=== PATIENT | female | born 1975 | race Hispanic/Latino ===

== ENCOUNTER 2017-10-24 17:47 | Emergency (ER) | payer OTHER ==
[~2017-10-24 17:47] MED LIST: MULT-1203 PO
[2017-10-24 18:39] LABS: BASOPHILS % (AUTO) 0.9 % (0.0-5.0); EOSINOPHILS % (AUTO) 5.4 % (0.0-8.0); LYMPHOCYTES % (AUTO) 36.3 % (21.0-51.0); MEAN CORPUSCULAR HEMOGLOBIN 30.1 pg (27.0-33.0); MEAN CORPUSCULAR HGB CONC 33.8 g/dL (32.0-36.0); MONOCYTES % (AUTO) 6.4 % (3.0-13.0); PLATELET COUNT (AUTO) 197 K/uL (130-400); RED BLOOD CELL COUNT(AUTO) 4.49 MIL/uL (4.00-5.50); RED CELL DISTRIBUTION WIDTH 14.3 % (11.0-15.5); WHITE BLOOD COUNT (AUTO) 6.9 K/uL (4.8-10.8)
[2017-10-24 18:54] LABS: CREATININE 0.7 mg/dL (0.5-1.5); POTASSIUM 3.8 mmol/L (3.5-5.1)
[2017-10-24 18:58] LABS: ALBUMIN 3.2 g/dL (3.5-5.0); BILIRUBIN,TOTAL 0.3 mg/dL (0.2-1.0); TOTAL PROTEIN, SERUM 6.5 g/dL (6.0-8.3)
[2017-10-24 19:07] LABS: B-TYPE NATRIURETIC PEPTIDE < 5 pg/mL (0-100)
[2017-10-24 19:42] LABS: APPEARANCE,URINE Clear (CLEAR); BILIRUBIN,URINE Negative (NEGATIVE); COLOR,URINE Yellow (YELLOW); GLUCOSE, URINE (UA) Negative (NEGATIVE); KETONES,URINE Negative (NEGATIVE); LEUKOCYTE ESTERASE ,URINE Negative (NEGATIVE); NITRATE,URINE Negative (NEGATIVE); OCCULT BLOOD,URINE Negative (NEGATIVE); PH,URINE 6.5 (5.0-8.0); PROTEIN,URINE Negative (NEGATIVE)
[2017-10-24 19:46] LABS: HCG,QUAL RESULT NEGATIVE (NEGATIVE)
== END 2017-10-24 19:57 | disposition home or self-care (01) ==
LOC: EDH 17:47
DX: R60.0 Localized edema (principal); M54.6 Pain in thoracic spine; Z90.710 Acquired absence of both cervix and uterus
CPT/HCPCS: 36415; 71046; 80053; 81003; 81025; 83880; 85025

== ENCOUNTER 2018-05-12 17:31 | Emergency (ER) | payer OTHER ==
[2018-05-12] MEDS ORDERED: LIDOCAINE 5% TOPICAL PATCH TP ONE (18:17)
[2018-05-12] MEDS ORDERED: DIAZEPAM 5 MG TABLET ONE (18:18)
[2018-05-12] MEDS ORDERED: IBUPROFEN 800 MG TAB ONE (18:18)
== END 2018-05-12 20:00 | disposition home or self-care (01) ==
LOC: EDH 17:31
DX: S39.012A Strain of muscle, fascia and tendon of lower back, initial encounter (principal); Z90.710 Acquired absence of both cervix and uterus; Z90.49 Acquired absence of other specified parts of digestive tract; W01.0XXA Fall on same level from slipping, tripping and stumbling without subsequent striking against object, initial encounter; Y93.89 Activity, other specified; Y92.89 Other specified places as the place of occurrence of the external cause; Y99.8 Other external cause status

== ENCOUNTER 2018-12-30 08:26 | Emergency (ER) | payer SELFPAY ==
[2018-12-30] MEDS ORDERED: IBUPROFEN 400 MG TABLET ONE (08:59)
[2018-12-30] MEDS ORDERED: HYDROCODONE/ACETAMINOPHEN 10/325 MG TAB ONE (08:59)
== END 2018-12-30 10:37 | disposition home or self-care (01) ==
LOC: EDH 08:26
DX: S89.82XA Other specified injuries of left lower leg, initial encounter (principal); W18.39XA Other fall on same level, initial encounter; Y93.89 Activity, other specified; Y92.89 Other specified places as the place of occurrence of the external cause; Y99.8 Other external cause status
CPT/HCPCS: 73562

== ENCOUNTER 2020-10-01 20:20 | Inpatient (IN) | payer MEDICAID ==
[~2020-10-01] VITALS: Ht 157.5 cm; Wt 133.8 kg
[2020-10-01 21:04] LABS: BASOPHILS % (AUTO) 0.5 % (0.0-5.0); EOSINOPHILS % (AUTO) 3.8 % (0.0-8.0); HEMATOCRIT 42.6 % (36-48); MEAN CORPUSCULAR HEMOGLOBIN 28.9 pg (27.0-33.0); MEAN CORPUSCULAR HGB CONC 31.7 g/dL (32.0-36.0); MEAN CORPUSCULAR VOLUME 91.2 fL (79-99); NEUTROPHILS % (AUTO) 48.6 % (40.0-77.0); PLATELET COUNT (AUTO) 178 K/uL (130-400); RED BLOOD CELL COUNT(AUTO) 4.67 MIL/uL (4.00-5.50); RED CELL DISTRIBUTION WIDTH 13.8 % (11.0-15.5); WHITE BLOOD COUNT (AUTO) 8.5 K/uL (4.8-10.8)
[2020-10-01 21:06] LABS: APPEARANCE,URINE Clear (CLEAR); BILIRUBIN,URINE Negative (NEGATIVE); COLOR,URINE Yellow (YELLOW); GLUCOSE, URINE (UA) Negative (NEGATIVE); KETONES,URINE Trace mg/dL (NEGATIVE); LEUKOCYTE ESTERASE ,URINE Negative (NEGATIVE); NITRATE,URINE Negative (NEGATIVE); OCCULT BLOOD,URINE Negative (NEGATIVE); PROTEIN,URINE Negative (NEGATIVE)
[2020-10-01] MEDS ORDERED: METOCLOPRAMIDE 10 MG/2 ML VIAL ONE (21:07)
[2020-10-01] MEDS ORDERED: ONDANSETRON 4MG INJ ONE (21:08)
[2020-10-01] MEDS ORDERED: PANTOPRAZOLE 40 MG/VIAL ONE (21:08)
[2020-10-01] MEDS ORDERED: FAMOTIDINE 20MG VIAL IV ONE (21:09)
[2020-10-01] MEDS ORDERED: 0.9%NACL 1000ML 1,000 ML IV ONE (21:10)
[2020-10-01 21:16] LABS: CREATININE 0.8 mg/dL (0.5-1.5)
[2020-10-01 21:21] LABS: ALBUMIN 3.4 g/dL (3.5-5.0); BILIRUBIN,TOTAL 0.3 mg/dL (0.2-1.0); TOTAL PROTEIN, SERUM 7.3 g/dL (6.0-8.3)
[2020-10-01] MEDS ORDERED: IOHEXOL-350 75 ML VIAL IV ONE (21:26)
[2020-10-02] MEDS: METRONIDAZOLE 500MG/100ML BAG 100 ML IV SCH ×3 (01:15→16:43)
[2020-10-02] MEDS ORDERED: ACETAMINOPHEN 325 MG TAB PO PRN ×2 (01:15)
[2020-10-02] MEDS: 0.9%NACL 1000ML 1,000 ML IV SCH ×3 (01:15→22:03)
[2020-10-02] MEDS ORDERED: ONDANSETRON 4MG INJ IV PRN (01:15)
[2020-10-02] MEDS ORDERED: 0.9%NACL 1000ML 1,000 ML IV ONE (01:54)
[2020-10-02] MEDS ORDERED: METRONIDAZOLE 500MG/100ML BAG 100 ML ONE (01:54)
[2020-10-02 02:20] VITALS: BP 106/57
[2020-10-02] MEDS: LEVOFLOXACIN 500 MG/D5W 100 ML 100 ML IV SCH (05:19)
[2020-10-02 08:00] VITALS: BP 95/57
[2020-10-02] MEDS: FAMOTIDINE 20MG VIAL IV SCH ×2 (09:43→22:03)
[2020-10-02 11:18] VITALS: BP 97/51
[2020-10-02 16:00] VITALS: BP 98/53
[2020-10-02 19:57] VITALS: BP 101/55
[2020-10-02 23:42] VITALS: BP 109/59
[2020-10-03] MEDS: METRONIDAZOLE 500MG/100ML BAG 100 ML IV SCH ×3 (03:24→16:23)
[2020-10-03] MEDS: LEVOFLOXACIN 500 MG/D5W 100 ML 100 ML IV SCH (04:07)
[2020-10-03 04:09] VITALS: BP 101/58
[2020-10-03 04:56] LABS: EOSINOPHILS % (AUTO) 4.6 % (0.0-8.0); HEMATOCRIT 39.7 % (36-48); LYMPHOCYTES % (AUTO) 48.3 % (21.0-51.0); MEAN CORPUSCULAR HEMOGLOBIN 29.1 pg (27.0-33.0); MEAN CORPUSCULAR HGB CONC 32.2 g/dL (32.0-36.0); MEAN CORPUSCULAR VOLUME 90.2 fL (79-99); MONOCYTES % (AUTO) 8.9 % (3.0-13.0); PLATELET COUNT (AUTO) 146 K/uL (130-400); RED CELL DISTRIBUTION WIDTH 13.6 % (11.0-15.5)
[2020-10-03 05:19] LABS: ALBUMIN 2.9 g/dL (3.5-5.0); BILIRUBIN,TOTAL 0.5 mg/dL (0.2-1.0); CREATININE 0.6 mg/dL (0.5-1.5); POTASSIUM 3.4 mmol/L (3.5-5.1); TOTAL PROTEIN, SERUM 6.2 g/dL (6.0-8.3)
[2020-10-03 07:59] VITALS: BP 107/53
[2020-10-03] MEDS ORDERED: POTASSIUM CHLORIDE 20MEQ/100ML 100 ML IV PRN (08:15)
[2020-10-03] MEDS ORDERED: KETOROLAC 15MG/ML VIAL (15MG/ML) IV PRN (08:15)
[2020-10-03] MEDS: FAMOTIDINE 20MG VIAL IV SCH ×2 (09:09→22:06)
[2020-10-03 11:31] VITALS: BP 103/60
[2020-10-03 16:00] VITALS: BP 92/53
[2020-10-03] MEDS: LACTATED RINGERS 1000ML 1,000 ML IV SCH (16:22)
[2020-10-03 19:59] VITALS: BP 96/70
[2020-10-03] MEDS: POLYETHYLENE GLYCOL 3350 17 GM POWD.PACK PO SCH (22:06)
[2020-10-03 23:12] VITALS: BP 102/53
[2020-10-04] MEDS: METRONIDAZOLE 500MG/100ML BAG 100 ML IV SCH ×2 (02:27→09:15)
[2020-10-04] MEDS: LEVOFLOXACIN 500 MG/D5W 100 ML 100 ML IV SCH (03:34)
[2020-10-04 03:59] VITALS: BP 96/56
[2020-10-04] MEDS: LACTATED RINGERS 1000ML 1,000 ML IV SCH (05:20)
[2020-10-04 05:58] LABS: CREATININE 0.7 mg/dL (0.5-1.5); POTASSIUM 3.6 mmol/L (3.5-5.1)
[2020-10-04 08:00] VITALS: BP 106/61
[2020-10-04] MEDS ORDERED: MAGNESIUM CITRATE 296 ML SOLUTION PO SCH (08:30)
[2020-10-04] MEDS ORDERED: POLYETHYLENE GLYCOL 3350 17 GM POWD.PACK PO SCH (09:00)
[2020-10-04] MEDS: POLYETHYLENE GLYCOL 3350 17 GM POWD.PACK PO SCH (09:00)
[2020-10-04] MEDS: FAMOTIDINE 20MG VIAL IV SCH (09:00)
[2020-10-04 13:00] VITALS: BP 99/63
[2020-10-04 18:05] VITALS: BP 96/57
== END 2020-10-04 18:34 | disposition home or self-care (01) | DRG 249 ==
LOC: EDH 20:20 → EDHIP 10-02 01:14 → 3CH 10-02 02:10
PROVIDERS: ADMIT Internal Medicine; ATTEND Internal Medicine
DX: K52.9 Noninfective gastroenteritis and colitis, unspecified (principal); E66.01 Morbid (severe) obesity due to excess calories; K76.0 Fatty (change of) liver, not elsewhere classified; K42.9 Umbilical hernia without obstruction or gangrene; K43.2 Incisional hernia without obstruction or gangrene; K57.30 Diverticulosis of large intestine without perforation or abscess without bleeding; E86.0 Dehydration; K59.00 Constipation, unspecified; Z82.49 Family history of ischemic heart disease and other diseases of the circulatory system; Z83.3 Family history of diabetes mellitus; Z90.710 Acquired absence of both cervix and uterus; Z98.84 Bariatric surgery status; Z68.43 Body mass index [BMI] 50.0-59.9, adult
CPT/HCPCS: 36415; 74018; 74021; 74177; 80048; 80053; 81003; 83690; 83735; 84484; 85025; 85651; 93005; C9113; G0378; J1956; J2405; J2765; J3480; J3490; J7030; J7120; Q9967